=== PATIENT | male | born 1965 | race Caucasian/White ===

== ENCOUNTER → 2017-04-28 | Day surgery (SDC) | payer OTHER ==
[~2017-04-28] VITALS: Ht 172.7 cm; Wt 75.0 kg
[~2017-04-28] MED LIST: ACETAMINOPHEN 325 MG TAB ONE; ACETAMINOPHEN 325 MG TAB PO SCH; CHOL400T PO; CYAN500T PO; ESOM20CA PO; IBUPROFEN 200 MG TAB PO SCH; MERCAPTOPURINE PO; PATIENT'S ALLERGY INFO NEEDS ENTERED SCH; PRD/1 PO; ZOLEDRONIC ACID INJ 5 MG in EMPTY BAG 0 ML IV ONE
[2017-04-28 12:56] VITALS: BP 140/72; PULSE 90; TEMP 36.7; O2SAT 98; Ht 172.7 cm; Wt 75.0 kg
--- NOTE | 2017-04-29 12:32 | EDITING REQUIRED CODING QUERY ---
TREATMENT RENDERED WITHOUT A DIAGNOSIS To promote full compliance with coding requirements relating to patient care, physician participation is requested in all cases of bridge toll collector uncertainty. Please assist us with the question(s) below: Coding Question: The patient is receiving IV RECLAST, as noted in the ORDER HISTORY of the record. Please document the diagnosis that is being addressed by the medication/treatment. Provider Response: osteoporosis Thank you Nancy Salvador
== END | disposition home or self-care (01) ==
LOC: C.MTU 12:45
PROVIDERS: ATTEND Pathology Anatomic Pathology & Clinical Pathology
DX: M81.0 Age-related osteoporosis without current pathological fracture (principal)